=== PATIENT | male | born 1980 | race Caucasian/White ===

== ENCOUNTER 2021-03-08 08:37 | Inpatient (IN) | payer BC, OTHER ==
[2021-03-08 10:13] VITALS: BMI 31.5
[2021-03-08] MEDS ORDERED: ONDANSETRON *ODT* 4 MG TABLET SL PRN (11:02)
[2021-03-08] MEDS ORDERED: MAGNESIUM HYDROX 2400MG/30ML ORAL SUSPENSION 30 ML CUP PO PRN (11:02)
[2021-03-08] MEDS ORDERED: IBUPROFEN 400 MG TABLET (FP) PO PRN (11:02)
[2021-03-08] MEDS ORDERED: ACETAMINOPHEN 325 MG TABLET (FP) PO PRN ×2 (11:02)
[2021-03-08] MEDS ORDERED: METHOCARBAMOL 500 MG TABLET PO PRN (11:02)
[2021-03-08] MEDS ORDERED: MAG HYDROX/AL HYDROX/SIMETH 30 ML UNIT-DOSE CUP PO PRN (11:02)
[2021-03-08] MEDS ORDERED: chlordiazePOXIDE HCL 25 MG CAPSULE PO PRN (11:02)
[2021-03-08] MEDS ORDERED: MENTHOL/PHENOL 1 EACH UD MM PRN (11:02)
[2021-03-08] MEDS ORDERED: MAGNESIUM CITRATE 300 ML BOTTLE PO PRN (11:02)
[2021-03-08] MEDS ORDERED: chlordiazePOXIDE HCL 25 MG CAPSULE ONE (14:45)
[2021-03-08] MEDS: chlordiazePOXIDE HCL 25 MG CAPSULE PO SCH ×2 (18:16→22:10)
[2021-03-08] MEDS: BISMUTH SUBSALICYLATE 524 MG/30 ML UD PO PRN (18:20)
[2021-03-08] MEDS: NICOTINE POLACRILEX 2 MG GUM BUC PRN (19:03)
[2021-03-08] MEDS: MELATONIN 5 MG TABLETS PO SCH (22:10)
[2021-03-08] MEDS: THIAMINE HCL 100 MG TABLET (FP) PO SCH (22:10)
[2021-03-09] MEDS ORDERED: LEVOTHYROXINE NA 50 MCG TABLET (FP) PO SCH (06:00)
[2021-03-09] MEDS: chlordiazePOXIDE HCL 25 MG CAPSULE PO SCH ×2 (06:26→10:12)
[2021-03-09] MEDS: BISMUTH SUBSALICYLATE 524 MG/30 ML UD PO PRN ×3 (06:28→19:12)
[2021-03-09] MEDS: LEVOTHYROXINE NA 25 MCG TABLET (FP) PO SCH (07:07)
[2021-03-09] MEDS: hydrOXYzine PAMOATE 25 MG CAPSULE (FP) PO PRN ×2 (10:11→22:06)
[2021-03-09] MEDS: PRENATAL VITAMINS W/ FOLIC ACID TABLET (FP) PO SCH (10:11)
[2021-03-09] MEDS: NICOTINE POLACRILEX 2 MG GUM BUC PRN ×2 (10:12→19:12)
[2021-03-09 12:36] LABS: HEMOGLOBIN 14.4 GM/dL (11.7-16.9); MCH 37.5 pg (25.7-33.7); MCHC 34.4 g/dl (32.0-35.9); MEAN CELL VOLUME 108.8 fl (80-96); MEAN PLT VOLUME 9.3 fl (7.5-11.1); PLATELET COUNT 214 K/MM3 (134-434); RBC 3.86 M/mm3 (4.00-5.60); RDW 12.5 % (11.9-15.9); WHITE BLOOD COUNT 8.4 K/mm3 (4.0-10.0)
[2021-03-09 12:43] LABS: BLOOD UREA NITROGEN 13.4 mg/dL (7-18); CALCIUM 9.1 mg/dL (8.5-10.1)
[2021-03-09 12:47] LABS: CREATININE 0.7 mg/dL (0.55-1.3)
[2021-03-09 12:48] LABS: BILIRUBIN,TOTAL 0.7 mg/dL (0.2-1); TOT PROT 7.4 g/dl (6.4-8.2)
[2021-03-09] MEDS ORDERED: LORazepam 1 MG TABLET PO PRN (14:37)
[2021-03-09] MEDS: LORazepam 2 MG TABLET PO SCH ×2 (17:36→22:06)
[2021-03-09] MEDS: MELATONIN 5 MG TABLETS PO SCH (22:06)
[2021-03-09] MEDS: THIAMINE HCL 100 MG TABLET (FP) PO SCH (22:06)
[2021-03-10] MEDS ORDERED: chlordiazePOXIDE HCL 25 MG CAPSULE PO SCH (05:00)
[2021-03-10] MEDS: LORazepam 2 MG TABLET PO SCH ×4 (06:52→22:12)
[2021-03-10] MEDS: LEVOTHYROXINE NA 25 MCG TABLET (FP) PO SCH (06:52)
[2021-03-10] MEDS: PRENATAL VITAMINS W/ FOLIC ACID TABLET (FP) PO SCH (10:21)
[2021-03-10] MEDS: NICOTINE POLACRILEX 2 MG GUM BUC PRN (17:47)
[2021-03-10] MEDS: MELATONIN 5 MG TABLETS PO SCH (22:13)
[2021-03-10] MEDS: hydrOXYzine PAMOATE 25 MG CAPSULE (FP) PO PRN (22:13)
[2021-03-10] MEDS: THIAMINE HCL 100 MG TABLET (FP) PO SCH (22:13)
[2021-03-11] MEDS ORDERED: chlordiazePOXIDE HCL 10 MG CAPSULE PO PRN
[2021-03-11] MEDS ORDERED: chlordiazePOXIDE HCL 10 MG CAPSULE PO SCH (05:00)
[2021-03-11] MEDS: LORazepam 1 MG TABLET PO SCH ×4 (05:29→22:25)
[2021-03-11] MEDS: LEVOTHYROXINE NA 25 MCG TABLET (FP) PO SCH (06:52)
[2021-03-11] MEDS: hydrOXYzine PAMOATE 25 MG CAPSULE (FP) PO PRN ×2 (10:15→17:42)
[2021-03-11] MEDS: PRENATAL VITAMINS W/ FOLIC ACID TABLET (FP) PO SCH (10:15)
[2021-03-11] MEDS: NICOTINE POLACRILEX 2 MG GUM BUC PRN (17:46)
[2021-03-11] MEDS: THIAMINE HCL 100 MG TABLET (FP) PO SCH (22:25)
[2021-03-11] MEDS: MELATONIN 5 MG TABLETS PO SCH (22:25)
[2021-03-12] MEDS ORDERED: LORazepam 0.5 MG TABLET PO PRN
[2021-03-12] MEDS ORDERED: chlordiazePOXIDE HCL 10 MG CAPSULE PO SCH (05:00)
[2021-03-12] MEDS: LORazepam 0.5 MG TABLET PO SCH ×4 (05:32→22:18)
[2021-03-12] MEDS: LEVOTHYROXINE NA 25 MCG TABLET (FP) PO SCH (06:54)
[2021-03-12] MEDS: PRENATAL VITAMINS W/ FOLIC ACID TABLET (FP) PO SCH (10:03)
[2021-03-12] MEDS: NICOTINE POLACRILEX 2 MG GUM BUC PRN ×3 (10:08→22:19)
[2021-03-12 10:10] LABS: SARS-CoV-2 NAA Not Detected (Not Detected)
[2021-03-12] MEDS: THIAMINE HCL 100 MG TABLET (FP) PO SCH (22:17)
[2021-03-12] MEDS: MELATONIN 5 MG TABLETS PO SCH (22:18)
[2021-03-13] MEDS ORDERED: chlordiazePOXIDE HCL 10 MG CAPSULE PO ONE (05:00)
[2021-03-13] MEDS ORDERED: LORazepam 0.5 MG TABLET PO ONE (05:00)
[2021-03-13] MEDS: NICOTINE POLACRILEX 2 MG GUM BUC PRN (05:41)
[2021-03-13 06:16] VITALS: BP 131/80; PULSE 85; TEMP 97.7
[2021-03-13] MEDS: LEVOTHYROXINE NA 25 MCG TABLET (FP) PO SCH (07:10)
== END 2021-03-13 09:30 | disposition home or self-care (01) | DRG 775 ==
LOC: YASAS 08:37 → Y6N 15:02
PROVIDERS: ADMIT Allergy & Immunology; ATTEND Allergy & Immunology
PROC: HZ2ZZZZ Detoxification Services for Substance Abuse Treatment (ICD-10-PCS; principal; 2021-03-08)
DX: F10.230 Alcohol dependence with withdrawal, uncomplicated (principal); F17.210 Nicotine dependence, cigarettes, uncomplicated; F19.24 Other psychoactive substance dependence with psychoactive substance-induced mood disorder; F41.9 Anxiety disorder, unspecified; F32.9 Major depressive disorder, single episode, unspecified; E03.9 Hypothyroidism, unspecified; G47.00 Insomnia, unspecified; R74.01 Elevation of levels of liver transaminase levels
CPT/HCPCS: 36415; 80053; 85027; 86780; C9803; U0003; U0005